=== PATIENT | male | born 1960 | race Caucasian/White ===

== ENCOUNTER 2016-11-20 12:35 | Observation (INO) | payer OTHER ==
[~2016-11-20] VITALS: Ht 180.3 cm; Wt 154.2 kg
--- NOTE | ~2016-11-20 | HP ---
History And Physical [id number] [place]. [address] NAME: CALVIN MONTERO : 60 STATUS : ADM Cynthia PAT#: [id number] AGE: 56 ADM/REG DATE : 11/20/16 MR#: [id number] REPORT SERV DATE: 11/20/16 DICTATED BY: CHAS PERALTA DATE: 11/20/16 REPORT STATUS : Draft TRANSCRIBED BY: MODL DATE: 11/20/16 DATE OF ADMISSION: 11/20/2016 CHIEF COMPLAINT: Shortness of breath. HISTORY OF PRESENT ILLNESS: This is a 56-year-old gentleman with history of hypertension, hyperlipidemia, diabetes, and morbid obesity presenting with a shortness of breath. The patient reports that the patient has been experiencing shortness of breath over the past one week. The shortness of breath comes and goes episodically and he also has diaphoresis and dizziness with the shortness of breath. The patient, otherwise, denies any chest pain, cough, fevers, or chills. The patient also reports that these spells are unrelated to activity. The patient could be walking and working or he could just simply be resting when he has these spells. The patient reports that he is able to lie flat, although he is used to sleeping in his recliner for the past several years just from personal preference and he has not felt any difference in his sleeping habitus. The patient reports that he is able to get a marisol's rest and feels refreshed when he gets up in the morning. The patient also has had chest pain episodes about five to six months ago and he was admitted to [facility] where he had a nuclear stress test as well as an echocardiogram, which were both reportedly very benign. The patient decided to go to [facility] ER for his symptoms of shortness of breath. From [facility] ER, transfer request was made to our facility for higher level of care. REVIEW OF SYSTEMS: The patient denies any fevers or chills. Also 14-point review of systems reviewed and negative other than mentioned above. MEDICATIONS: The patient's home medication list is still pending at this time. PAST MEDICAL HISTORY: 1. Hypertension. 2. Hyperlipidemia. 3. Diabetes type 2. 4. Morbid obesity. PAST SURGICAL HISTORY: Hemorrhoid surgeries in 2007. FAMILY HISTORY: Coronary artery diseases, although no premature coronary artery disease. SOCIAL HISTORY: The patient has quit smoking as of May of this year, which is about six months ago. The patient does admit to daily alcohol consumption and he admits to being an alcoholic himself. He drinks on average half a pint to one pint of liquor on daily basis. The patient, otherwise, does not use any illicit drugs. The patient lives at home by himself and he works for a [employer] and [employer]. The patient admits to having been under quite a bit of stress between his brother who is dying from cancer as well as some changes at work that he was not very happy about in the recent past. History And Physical [address] [address] NAME: CALVIN MONTERO : 60 STATUS : ADM Cynthia PAT#: [id number] AGE: 56 ADM/REG DATE : 11/20/16 MR#: [id number] REPORT SERV DATE: 11/20/16 DICTATED BY: CHAS PERALTA DATE: 11/20/16 REPORT STATUS : Draft TRANSCRIBED BY: MATILDE DATE: 11/20/16 PHYSICAL EXAMINATION: VITAL SIGNS: Temperature 98.3, blood pressure 163/90, pulse 76, respiratory rate is 15, and saturating 96% on room air. GENERAL: The patient is alert and oriented x3 with no focal neurologic deficits. The patient is awake, does not appear to be in acute distress, and he is cooperative. NECK: No JVD. No lymphadenopathy. Normal thyroid. CHEST: No midline sternotomy scar and no tenderness to palpation. LUNGS: Clear to auscultation bilaterally with normal respiratory effort on room air. CARDIOVASCULAR: Regular rate and rhythm with no murmurs, rubs, or gallops, and PMI is nondisplaced. ABDOMEN: Soft and nontender with active bowel sounds and no organomegaly. EXTREMITIES: No edema. Normal distal pulses. No calf tenderness. SKIN: Clean, dry, warm, and intact. LABORATORY DATA: Sodium is 140, potassium 4.3, chloride 99, BUN 13, creatinine 0.77, glucose 182, and calcium 9.5. White blood cell count is 8.8, hemoglobin 16.3, and platelets 143. Troponin is less than 0.03. INR 0.9. BNP was 75. Chest x-ray reportedly was nonacute. An EKG is personally interpreted and it did not show any acute obvious ischemic changes. ASSESSMENT: This is a 56-year-old gentleman with history of hypertension, diabetes, hyperlipidemia, presenting with a shortness of breath. 1. Shortness of breath, unrelated to activity. I am suspicious that this is not actually manifestation of any cardiopulmonary process, but more possibly an anxiety. 2. Alcohol abuse. 3. Hypertension. 4. Diabetes type 2. 5. Hyperlipidemia. PLAN: My plan is to admit the patient for observation overnight. The patient will be monitored under telemetry. I will still go ahead and get a CT of the chest to make sure he does not have any cardiopulmonary process. As the patient has had a stress test and an echocardiogram in the past of five to six months at [facility], I will not repeat it. For likely underlying anxiety, I will go ahead and start him on an SSRI. The patient will also be given anxiolytic as needed. For alcohol abuse, cessation counseling was provided, which was very well received by the patient. The patient will also be put on CIWA protocol and he will be given daily vitamins. For the rest of stable past medical conditions including hypertension, hyperlipidemia, and diabetes, I will continue home medications. I will check his hemoglobin A1c and also give him insulin sliding scale as needed. Standard DVT prophylaxis. The patient is full code at this time. [facility]/MATILDE Chas Peralta MD History And Physical [address] [address] NAME: CALVIN MONTERO : 60 STATUS : ADM Cynthia PAT#: [id number] AGE: 56 ADM/REG DATE : 11/20/16 MR#: [id number] REPORT SERV DATE: 11/20/16 DICTATED BY: CHAS PERALTA DATE: 11/20/16 REPORT STATUS : Draft TRANSCRIBED BY: MODEnrique DATE: 11/20/16 / [id number] CC: Chas Peralta MD
--- NOTE | ~2016-11-20 | DS ---
Discharge Summary [facility] [address] [place]. [address] NAME: CALVIN MONTERO : 60 STATUS : DIS Cynthia PAT#: [id number] AGE: 56 ADM/REG DATE : 11/20/16 MR#: [id number] REPORT SERV DATE: 11/21/16 DICTATED BY: CHAS PERALTA DATE: 11/21/16 REPORT STATUS : Draft TRANSCRIBED BY: MODL DATE: 11/21/16 ADMISSION DATE: 11/20/2016 DISCHARGE DATE: 11/21/2016 DISCHARGE DIAGNOSES: 1. Shortness of breath, likely secondary to underlying anxiety. 2. An incidental finding of a 1.4 cm noncalcified pulmonary nodule in the right lower lobe, this is suspicious and needs to be followed up with a low-dose noncontrast CT in three months. 3. Hypertension. 4. Hyperlipidemia. 5. Diabetes type 2. 6. Alcohol abuse. 7. Morbid obesity. CONSULTANTS: None. PROCEDURES: None. HOSPITAL COURSE: This is a 56-year-old gentleman who was transferred from [facility] with initial concerns for possible acute coronary syndrome as he presented with episodic shortness of breath. However, upon careful history and physical examination, it was felt that the patient was suffering from episodic anxiety, if anything, especially when the patient has already had a full cardiac workup within the past six months that included a nuclear stress test as well as an echocardiogram. The patient was admitted for symptomatic control, and I started the patient on Zoloft along with anxiolytics as needed, especially given the fact the patient does abuse alcohol and there was a high probability of him withdrawing from alcohol. The patient responded excellently, and by the next day, the patient was ready to be discharged to home. Of note, I did go ahead and check CTA of the chest just to make sure he does not have any occult pulmonary embolism and interestingly it actually revealed a suspicious noncalcified pulmonary nodule of size 1.4 cm in the right lower lobe. This will need to be followed up in the next three months, and the patient was educated regarding the importance of followup. Otherwise, the patient's blood pressure remained very well controlled, and the patient hemoglobin A1c was found to be at 7, and his blood glucose has been fairly well controlled during this hospital stay. The patient is now being discharged to home with close outpatient followup. DISPOSITION: Home. DISCHARGE MEDICATIONS: 1. Atarax 25 mg p.o. q.4 hours p.r.n. for anxiety. 2. Zoloft 50 mg p.o. daily. 3. Lisinopril 10 mg p.o. daily. 4. Tenormin, the dose was decreased from 100 mg p.o. daily to 50 mg p.o. daily, as the patient is getting started on the lisinopril. Otherwise, no medication changes. Discharge Summary [address] [address] NAME: CALVIN MONTERO : 60 STATUS : DIS Cynthia PAT#: [id number] AGE: 56 ADM/REG DATE : 11/20/16 MR#: [id number] REPORT SERV DATE: 11/21/16 DICTATED BY: CHAS PERALTA DATE: 11/21/16 REPORT STATUS : Draft TRANSCRIBED BY: MATILDE DATE: 11/21/16 FOLLOWUP: 1. Please follow up with PCP in the next one to two weeks. 2. Please follow up for an outpatient CT of the chest in the next three months. A total of 25 minutes spent in coordinating this patient's discharge today. [facility]/MATILDE Chas Peralta MD / [id number] CC: MD IRA Beavers PAUL E
[2016-11-20] MEDS ORDERED: ATEN50 PO (15:35)
[2016-11-20] MEDS ORDERED: HALF81 PO (15:35)
[2016-11-20] MEDS ORDERED: RANITIDINE300 MG PO (15:35)
[2016-11-20 17:14] LABS: TROPONIN I <0.02 NG/ML (<0.05)
[2016-11-20 18:08] LABS: BUN (BLOOD UREA NITROGEN) 14 MG/DL (6-23); CALCIUM, SERUM 9.2 MG/DL (8.5-10.4); CHLORIDE, SERUM 104 MMOL/L (96-112); CO2 (CARBON DIOXIDE) 25 MMOL/L (24-34); CREATININE 0.75 MG/DL (0.70-1.30); GFR AFRICAN AMERICAN 119 ML/MIN (>=60); GFR NON AFRICAN AMERICAN 103 ML/MIN (>=60); GLUCOSE, SERUM 110 MG/DL (60-99); POTASSIUM, SERUM 4.1 MMOL/L (3.5-5.3); SODIUM, SERUM 138 MMOL/L (135-148)
[2016-11-21 03:26] LABS: BASOPHILS 0.3 %; BASOPHILS ABSOLUTE 0.02 10/3/uL (0.0-0.16); EOSINOPHILS 1.4 %; HEMOGLOBIN 14.5 g/dL (13.6-17.8); IMMATURE GRANULOCYTES 0.8 %; IMMATURE GRANULOCYTES ABSOLUTE 0.06 10/3/uL (0.0-0.11); LYMPHOCYTES 29.3 %; LYMPHOCYTES ABSOLUTE 2.13 10/3/uL (0.67-4.30); MEAN CORPUS HGB CONC 33.7 g/dL (32.0-36.0); MEAN CORPUSCULAR HEMOGLOB 33.6 pg (26.0-34.0); MEAN CORPUSCULAR VOLUME 99.5 fL (80-100); MONOCYTES 14.7 %; MONOCYTES ABSOLUTE 1.07 10/3/uL (0.21-1.20); NEUTROPHILS 53.5 %; PLATELET COUNT 121 10/3/uL (150-400); RBC DISTRIBUTION WIDTH 12.5 % (12.0-16.0); RED CELL COUNT 4.32 10/6/uL (4.7-6.1); WHITE BLOOD CELLS 7.3 10/3/uL (4.5-10.5)
[2016-11-21 03:36] LABS: MANUAL DIFF NO %
[2016-11-21 03:46] LABS: BUN (BLOOD UREA NITROGEN) 16 MG/DL (6-23); CHLORIDE, SERUM 103 MMOL/L (96-112); CO2 (CARBON DIOXIDE) 28 MMOL/L (24-34); CREATININE 0.92 MG/DL (0.70-1.30); GFR AFRICAN AMERICAN 107 ML/MIN (>=60); GFR NON AFRICAN AMERICAN 93 ML/MIN (>=60); GLUCOSE, SERUM 103 MG/DL (60-99); POTASSIUM, SERUM 3.7 MMOL/L (3.5-5.3); SODIUM, SERUM 138 MMOL/L (135-148); TROPONIN I <0.02 NG/ML (<0.05)
[2016-11-21] MEDS ORDERED: PRIN10 PO (14:19)
[2016-11-21] MEDS ORDERED: ZOL50 PO (14:19)
[2016-11-21] MEDS ORDERED: AT25 PO (14:20)
== END 2016-11-21 14:47 | disposition home or self-care (01) ==
LOC: ENRESERV → ENRESERVTM → ENRESERVDT → CDU1 13:43
PROVIDERS: Internal Medicine
DX: R06.02 Shortness of breath (principal); I10 Essential (primary) hypertension; E78.5 Hyperlipidemia, unspecified; E11.9 Type 2 diabetes mellitus without complications; E66.01 Morbid (severe) obesity due to excess calories; F41.9 Anxiety disorder, unspecified; Z79.899 Other long term (current) drug therapy
CPT/HCPCS: 71275; 80048; 82962; 83036; 84484; 85025; 96372; 96374; A9270-GY; G0378; J3411; Q9967